=== PATIENT | female | born 1985 | race Caucasian/White ===

== ENCOUNTER 2018-08-03 14:04 | Emergency (ER) | payer MEDICAID, OTHER ==
[~2018-08-03] VITALS: Ht 162.6 cm; Wt 83.0 kg
[2018-08-03 14:04] VITALS: BP 124/77
--- NOTE | 2018-08-03 14:20 | NUR ---
33 YO F BIB SELF W/ C/O RIGHT LEG PAIN AND NUMBNESS SINCE TUESDAY. PT STATES THAT SHE WOKE UP IN THE MORNING W/ A LEG CRAMP, "DONN HORSE", BUT IT HAS NOT GONE AWAY. PT DENIES ANY INJURY OR TRAUME. AMBULATORY W/ STEADY GAIT. -EDEMA/DISCOLORATION/DEFORMITY. PT REPORTS TAKING TYLENOL FOR THE PAIN TODAY. . DENIES N/V/D; SKIN IS PINK/WARM/DRY; AAOX4 WITH EVEN AND STEADY GAIT; LUNGS CLEAR BL; HR EVEN AND REGULAR; PT DENIES ANY FEVER, CP, SOB, OR COUGH AT THIS TIME; PATIENT STATES PAIN OF 8/10 AT THIS TIME; VSS; PATIENT POSITIONED FOR COMFORT; HOB ELEVATED; BEDRAILS UP X2; BED DOWN. ER MADE AWARE OF PT STATUS.
--- NOTE | 2018-08-03 14:20 | NUR ---
Note undone in EDM - 08/03/18 at 1437 by LIDIA 3 YO F BIB SELF W/ C/O RIGHT LEG PAIN AND NUMBNESS SINCE TUESDAY. PT STATES THAT SHE WOKE UP IN THE MORNING W/ A LEG CRAMP, "DONN HORSE", BUT IT HAS NOT GONE AWAY. PT DENIES ANY INJURY OR TRAUME. AMBULATORY W/ STEADY GAIT. -EDEMA/DISCOLORATION/DEFORMITY. PT REPORTS TAKING TYLENOL FOR THE PAIN TODAY.. DENIES N/V/D; SKIN IS PINK/WARM/DRY; AAOX4 WITH EVEN AND STEADY GAIT; LUNGS CLEAR BL; HR EVEN AND REGULAR; PT DENIES ANY FEVER, CP, SOB, OR COUGH AT THIS TIME; PATIENT STATES PAIN OF 8/10 AT THIS TIME; VSS; PATIENT POSITIONED FOR COMFORT; HOB ELEVATED; BEDRAILS UP X2; BED DOWN. ER MADE AWARE OF PT STATUS.
[2018-08-03] MEDS ORDERED: KETOROLAC 30 MG/ML VIAL IM ONE (14:30)
[2018-08-03 15:03] LABS: BASOPHILS # (AUTO) 0.1 K/uL (0.00-0.22); BASOPHILS % (AUTO) 0.7 % (0.0-2.0); EOSINOPHILS # (AUTO) 0.2 K/uL (0-0.4); HEMATOCRIT 40.5 % (36-48); HEMOGLOBIN 13.5 g/dL (12.0-16.0); LYMPHOCYTES # (AUTO) 2.5 K/uL (2.5-16.5); LYMPHOCYTES % (AUTO) 32.4 % (20.5-51.1); MEAN CORPUSCULAR HEMOGLOBIN 30 pg (27-31); MEAN CORPUSCULAR HGB CONC 33 g/dL (33-37); MEAN CORPUSCULAR VOLUME 89.7 fL (80-94); MONOCYTES # (AUTO) 0.7 K/uL (0.8-1.0); NEUTROPHILS # (AUTO) 4.2 K/uL (1.8-7.7); NEUTROPHILS % (AUTO) 54.9 % (42.2-75.2); PLATELET COUNT (AUTO) 294 K/uL (140-450); RED BLOOD CELL COUNT(AUTO) 4.52 MIL/uL (4.20-5.40); RED CELL DISTRIBUTION WIDTH 13.7 % (11.6-13.7); WHITE BLOOD COUNT (AUTO) 7.7 K/uL (4.8-10.8)
[2018-08-03 15:24] LABS: ALBUMIN 3.7 g/dL (3.4-5.0); ANION GAP 11.1 (8-16); CARBON DIOXIDE 23.8 mmol/L (21-32); CREATININE 0.7 mg/dL (0.6-1.3); POTASSIUM 3.9 mmol/L (3.5-5.1); TOTAL BILIRUBIN 0.3 mg/dL (0.0-1.0)
[2018-08-03 15:27] LABS: D-DIMER < 100 ng/ml (0-400)
[2018-08-03 15:31] LABS: PROTHROMBIN TIME 9.4 secs (10.8-13.4)
[2018-08-03 15:37] VITALS: BP 118/75
--- NOTE | 2018-08-03 15:38 | NUR ---
Patient discharged with v/s stable. Written and verbal after care instructions given and explained. Patient alert, oriented and verbalized understanding of instructions. Ambulatory with steady gait. All questions addressed prior to discharge. ID band removed. Patient advised to follow up with PMD. Rx of TRAMADOL AND NAPROXEN given. Patient educated on indication of medication including possible reaction and side effects. Opportunity to ask questions provided and answered.
== END 2018-08-03 15:38 | disposition home or self-care (01) ==
LOC: MED 14:04
DX: S76.311A Strain of muscle, fascia and tendon of the posterior muscle group at thigh level, right thigh, initial encounter (principal); Z98.51 Tubal ligation status; X58.XXXA Exposure to other specified factors, initial encounter; Y93.89 Activity, other specified; Y92.89 Other specified places as the place of occurrence of the external cause; Y99.8 Other external cause status
CPT/HCPCS: 36415; 80053; 85025; 85379; 85610; 85730; 93971; 96372; 99284; J1885; Q0092

== ENCOUNTER 2021-02-03 21:30 | Emergency (ER) | payer OTHER ==
[~2021-02-03] VITALS: Ht 157.5 cm; Wt 81.2 kg
[2021-02-03 21:35] VITALS: BP 112/79
--- NOTE | 2021-02-03 22:36 | NUR ---
PT AMBULATED UNASSISTED TO ER BED 3
--- NOTE | 2021-02-03 22:39 | NUR ---
35/F FROM LOBBY WITH LOW BACK PAIN STARTING TODAY, PT DENIES RECENT INJURY OR TRAUMA TO AREA. AMBULATORY FROM LOBBY WITHOUT ANY INCIDENT.
--- NOTE | 2021-02-03 23:02 | NUR ---
received report from Ezekiel DANIELS for continuity of care.
--- NOTE | 2021-02-03 23:11 | NUR ---
patient laying supine, patient complains of pain in the lower back feels like a 8/10 patient reports in the past has sciatica, VSS, AAOX4.
--- NOTE | 2021-02-03 23:39 | NUR ---
patient ambulated to the bathroom for urine collection
[2021-02-04] MEDS ORDERED: CYCLOBENZAPRINE 10 MG TAB PO ONE (00:30)
[2021-02-04] MEDS ORDERED: KETOROLAC 30 MG/ML VIAL IM ONE (00:30)
[2021-02-04] MEDS ORDERED: IBUP-2213 PO (00:37)
[2021-02-04] MEDS ORDERED: CYCL-711 PO (00:37)
[2021-02-04 01:20] VITALS: BP 126/65
--- NOTE | 2021-02-04 01:20 | NUR ---
Patient discharged with v/s stable. Written and verbal after care instructions given and explained. Patient alert, oriented and verbalized understanding of instructions. Ambulatory with steady gait. All questions addressed prior to discharge. ID band removed. Patient advised to follow up with PMD. Rx of IBUPROFEN AND FLEXERIL given. Patient educated on indication of medication including possible reaction and side effects. Opportunity to ask questions provided and answered.
== END 2021-02-04 01:20 | disposition home or self-care (01) ==
LOC: MED 21:30
DX: M54.5 Low back pain (principal); Z79.899 Other long term (current) drug therapy; Z98.890 Other specified postprocedural states
CPT/HCPCS: 81025; 96372; 99283; J1885; 81002

== ENCOUNTER 2022-07-01 20:20 | Emergency (ER) | payer OTHER ==
[~2022-07-01] VITALS: Ht 157.5 cm; Wt 67.1 kg
[~2022-07-01 20:20] MED LIST: CYCL-711 PO; IBUP-2213 PO
[2022-07-01 20:23] VITALS: BP 103/58
--- NOTE | 2022-07-01 20:26 | NUR ---
TO LOBBY A/W BED AMBULATORY
[2022-07-01 22:11] LABS: APPEARANCE,URINE CLEAR (CLEAR); BILIRUBIN,URINE NEGATIVE (NEGATIVE); BLOOD, URINE TRACE-I (NEGATIVE); COLOR,URINE YELLOW (YELLOW); LEUKOCYTE ESTERASE ,URINE NEGATIVE (NEGATIVE); NITRITE, URINE NEGATIVE (NEGATIVE); UGLUCOSE NEGATIVE (NEGATIVE)
[2022-07-01 22:25] LABS: RBC,URINE 0-5 /HPF (0-5); WBC,URINE 0-5 /HPF (0-5)
--- NOTE | 2022-07-01 23:01 | NUR ---
Patient lying in bed, A/Ox4, chest rise and fall symmetrical, no s/s of distress, patient on monitor.
[2022-07-01] MEDS ORDERED: LIDOCAINE 5% 1 EA PATCH TP SCH (23:35)
[2022-07-01] MEDS ORDERED: ACETAMINOPHEN EXTRA STRENGTH 500 MG TAB PO ONE (23:35)
[2022-07-01] MEDS ORDERED: LIDOCAINE 5% 1 EA PATCH TP ONE (23:36)
[2022-07-01] MEDS ORDERED: ACETAMINOPHEN EXTRA STRENGTH 500 MG TAB ONE (23:37)
--- NOTE | 2022-07-02 00:01 | NUR ---
Patient lying in bed, A/Ox4, chest rise and fall symmetrical, no s/s of distress, patient on monitor.
[2022-07-02] MEDS ORDERED: IBUP-2213 PO (00:25)
[2022-07-02] MEDS ORDERED: ACET-10509 PO (00:25)
[2022-07-02 00:28] VITALS: BP 122/71
== END 2022-07-02 00:30 | disposition home or self-care (01) ==
LOC: MED 20:20
DX: S39.012A Strain of muscle, fascia and tendon of lower back, initial encounter (principal); Z90.49 Acquired absence of other specified parts of digestive tract; Z79.899 Other long term (current) drug therapy; Z98.890 Other specified postprocedural states; X58.XXXA Exposure to other specified factors, initial encounter; Y93.89 Activity, other specified; Y92.89 Other specified places as the place of occurrence of the external cause; Y99.8 Other external cause status
CPT/HCPCS: 81001; 81025; 87086; 99283